=== PATIENT | female | born 1950 | race Caucasian/White ===

== ENCOUNTER → 2016-12-13 | Outpatient (CLI) | payer BC ==
[~2016-12-13] MED LIST: ATENOLOL25 MG PO; BYSTOLIC5 MG PO; COZAAR 25MG25 MG/TAB PO; DECADRON PO; DECADRON4 MG PO; HCTZ PO; HYDROXYZINE HCL25 MG PO; HYDROXYZINE PAM25 MG PO; LISINOPRIL; MIRTAZAPINE7.5 MG PO; MVI; NORCO 325 MG-51 TAB PO; PRILOSEC 20MG20 MG PO; REMERON SOLTAB15 MG PO; XANAX0.25 MG PO
== END ==
LOC: BHSO 09:36
DX: F41.1 Generalized anxiety disorder (principal)

== ENCOUNTER → 2017-01-07 | Outpatient (CLI) | payer BC | LOC: BHSO 09:42 | DX: F41.1 Generalized anxiety disorder (principal) ==

== ENCOUNTER → 2017-02-10 | Outpatient (CLI) | payer BC, MEDICARE, OTHER | LOC: BHSO 14:32 | DX: F41.1 Generalized anxiety disorder (principal) ==

== ENCOUNTER → 2017-05-12 | Outpatient (CLI) | payer MEDICARE, OTHER | LOC: BHSO 14:50 | DX: F41.1 Generalized anxiety disorder (principal) ==

== ENCOUNTER → 2017-11-10 | Outpatient (CLI) | payer MEDICARE, OTHER | LOC: BHSO 14:35 | DX: F41.1 Generalized anxiety disorder (principal) | CPT/HCPCS: G0463 ==

== ENCOUNTER → 2018-05-04 | Outpatient (CLI) | payer MEDICARE, OTHER | LOC: BHSO 14:18 | DX: F41.1 Generalized anxiety disorder (principal) | CPT/HCPCS: G0463 ==

== ENCOUNTER → 2018-07-31 | Outpatient (CLI) | payer MEDICARE, OTHER | LOC: MC.RAD 09:58 | DX: Z12.31 Encounter for screening mammogram for malignant neoplasm of breast (principal); Z78.0 Asymptomatic menopausal state ==

== ENCOUNTER → 2018-11-07 | Outpatient (CLI) | payer MEDICARE, OTHER | LOC: BHSO 13:56 | DX: F41.1 Generalized anxiety disorder (principal) | CPT/HCPCS: G0463 ==

== ENCOUNTER → 2019-01-30 | Outpatient (CLI) | payer MEDICARE, OTHER | LOC: BHSO 14:32 | DX: F41.1 Generalized anxiety disorder (principal) | CPT/HCPCS: G0463 ==

== ENCOUNTER → 2019-07-31 | Outpatient (CLI) | payer MEDICARE, OTHER | LOC: BHSO 13:54 | DX: F41.1 Generalized anxiety disorder (principal) | CPT/HCPCS: G0463 ==

== ENCOUNTER → 2019-08-21 | Outpatient (CLI) | payer MEDICARE, OTHER | LOC: MC.RAD 12:50 | DX: Z12.31 Encounter for screening mammogram for malignant neoplasm of breast (principal); N63.10 Unspecified lump in the right breast, unspecified quadrant; N63.20 Unspecified lump in the left breast, unspecified quadrant ==

== ENCOUNTER → 2020-03-06 | Outpatient (CLI) | payer MEDICARE, OTHER | LOC: MC.RAD 09:09 | DX: N60.11 Diffuse cystic mastopathy of right breast (principal) | CPT/HCPCS: G0279 ==

== ENCOUNTER → 2020-08-22 | Outpatient (CLI) | payer MEDICARE, OTHER | LOC: MC.RAD 12:56 | DX: Z12.31 Encounter for screening mammogram for malignant neoplasm of breast (principal) ==

== ENCOUNTER 2020-11-19 14:42 | Outpatient (CLI) | payer MEDICARE, OTHER ==
[~2020-11-19] VITALS: Ht 154.9 cm; Wt 62.9 kg
[2020-11-19 15:15] VITALS: BP 119/78; PULSE 64; TEMP 98
[2020-11-19] MEDS ORDERED: LIPITOR 10MG10 MG PO (15:27)
[2020-11-19] MEDS ORDERED: CLARITIN 1010 MG/TAB PO (15:27)
[2020-11-19] MEDS ORDERED: TOPROL XL 50MG50 MG PO (15:27)
[2020-11-19] MEDS ORDERED: ZOLOFT 100MG100 MG PO (15:27)
[2020-11-19] MEDS ORDERED: MASON NATURAL2000 IU PO (15:28)
[2020-11-19] MEDS ORDERED: CALCIUM 600-D 61 TAB PO (15:29)
[2020-11-19] MEDS ORDERED: TURMERIC500 MG PO (15:29)
[2020-11-19] MEDS ORDERED: MULTIVITAMIN FO1 CAP PO (15:29)
== END 2020-11-19 16:29 | disposition home or self-care (01) ==
LOC: EUO 14:42
DX: M81.0 Age-related osteoporosis without current pathological fracture (principal)
CPT/HCPCS: J3489

== ENCOUNTER → 2021-09-30 | Outpatient (CLI) | payer MEDICARE, OTHER ==
[~2021-09-30] MED LIST changes: +CALCIUM 600-D 61 TAB PO; +CLARITIN 1010 MG/TAB PO; +LIPITOR 10MG10 MG PO; +MASON NATURAL2000 IU PO; +MULTIVITAMIN FO1 CAP PO; +TOPROL XL 50MG50 MG PO; +TURMERIC500 MG PO; +ZOLOFT 100MG100 MG PO
== END ==
LOC: MC.RAD 12:59
DX: Z12.31 Encounter for screening mammogram for malignant neoplasm of breast (principal); N63.10 Unspecified lump in the right breast, unspecified quadrant; N63.20 Unspecified lump in the left breast, unspecified quadrant

== ENCOUNTER 2022-01-20 14:49 | Outpatient (CLI) | payer MEDICARE, OTHER ==
[~2022-01-20] VITALS: Ht 154.9 cm; Wt 63.5 kg
[2022-01-20 15:35] VITALS: BP 118/63; PULSE 72; TEMP 97.3
== END 2022-01-20 16:14 | disposition home or self-care (01) ==
LOC: EUO 14:49
DX: M81.0 Age-related osteoporosis without current pathological fracture (principal)
CPT/HCPCS: J3489

== ENCOUNTER → 2022-11-02 | Outpatient (CLI) | payer MEDICARE, OTHER | LOC: MC.RAD 07:40 | DX: Z12.31 Encounter for screening mammogram for malignant neoplasm of breast (principal) ==

== ENCOUNTER 2023-01-25 12:34 | Outpatient (CLI) | payer MEDICARE, OTHER ==
[~2023-01-25] VITALS: Ht 154.9 cm; Wt 60.8 kg
[~2023-01-25 12:34] MED LIST changes: -MASON NATURAL2000 IU PO; +VITAMIN D31000 I1 PO; +XANAX .25M0.25 MG/TA PO
[2023-01-25 13:06] VITALS: BP 116/73; PULSE 64; TEMP 98.4
[2023-01-25] MEDS ORDERED: OCUVITE1 TA1 PO (13:12)
[2023-01-25] MEDS ORDERED: OSCAL 500 TAB500 MG PO (13:14)
[2023-01-25] MEDS ORDERED: RECLAST5 MG/100 M IV (13:15)
--- NOTE | 2023-01-25 13:53 | NUR ---
Pt tolerated infusion without issue. IV DC'd, site wrapped with coban. She exited dept with steady gait.
== END 2023-01-25 13:57 | disposition home or self-care (01) ==
LOC: EUO 12:34
DX: M81.0 Age-related osteoporosis without current pathological fracture (principal)
CPT/HCPCS: J3489

== ENCOUNTER 2024-06-11 06:34 | Emergency (ER) | payer MEDICARE ==
[~2024-06-11] VITALS: Ht 162.6 cm; Wt 61.4 kg
[~2024-06-11 06:34] MED LIST changes: +OCUVITE1 TA1 PO; +OSCAL 500 TAB500 MG PO; +RECLAST5 MG/100 M IV
[2024-06-11 06:52] VITALS: TEMP 97.7
[2024-06-11 07:28] LABS: URINE APPEARANCE CLEAR (CLEAR/HAZY); URINE BLOOD 2+ (NEGATIVE); URINE COLOR YELLOW (YELLOW); URINE GLUCOSE NEGATIVE (NEGATIVE); URINE KETONE NEGATIVE (NEGATIVE); URINE NITRATE NEGATIVE (NEGATIVE); URINE PROTEIN(semi-quant) TRACE (NEGATIVE); URINE UROBILINOGEN 0.2 E.U/dL (0.2-1.0)
[2024-06-11] MEDS ORDERED: Ondansetron 4 MG/2 ML VIAL IV ONE (07:30)
[2024-06-11] MEDS ORDERED: Morphine 4 MG/ML VIAL IV ONE (07:30)
[2024-06-11] MEDS ORDERED: LR 1,000 ML IV ONE (07:30)
[2024-06-11 08:11] LABS: BASO # 0.1 K/mm3 (0.0-0.2); BASO % 0.4 % (0.0-2.0); EOS # 0.2 K/mm3 (0.0-0.7); EOS % 1.3 % (0.0-4.0); GRAN % 79.8 % (42.2-75.2); HEMOGLOBIN 14.8 g/dl (12.5-16.0); LYMPH # 1.9 K/mm3 (1.2-3.4); LYMPH % 12.6 % (20.0-51.0); MEAN CELL VOLUME 97 fl (80.0-100.0); MEAN CORPUSCULAR HEMOGLOBIN 33 pg (27-31); MEAN CORPUSCULAR HGB CONC 34 g/dl (33.0-37.0); MONO # 0.8 K/mm3 (0.1-0.6); MONO % 5.5 % (1.7-9.3); PLATELET COUNT 192 K/mm3 (130-400); RED BLOOD COUNT 4.53 M/mm3 (4.10-5.30)
[2024-06-11 09:00] LABS: ALBUMIN 3.7 g/dL (3.4-4.8); BILIRUBIN,TOTAL 0.5 mg/dL (0.2-1.2); C-REACTIVE PROTEIN 0.95 mg/dL (0.00-0.50); CALCIUM 9.6 mg/dL (8.4-10.2); CREATININE, serum 0.84 mg/dL (0.57-1.11); POTASSIUM 4.6 mEq/L (3.5-4.5); TOTAL PROTEIN 7.1 g/dl (6.2-8.1)
[2024-06-11] MEDS ORDERED: Iohexol 300 - 100 ML VIAL IV ONE (09:13)
[2024-06-11] MEDS ORDERED: NS 100 ML IV SCH (09:14)
[2024-06-11 09:49] LABS: COLLECTION METHOD CLEAN CATCH
[2024-06-11] MEDS ORDERED: CEFTIN 250250 MG/TAB PO (09:57)
[2024-06-11] MEDS ORDERED: NORCO 325 MG-51 TAB PO (09:57)
[2024-06-11] MEDS ORDERED: cefTRIAXone 1 G in Water For Injection,Sterile 10 ML IV ONE (10:00)
[2024-06-11 10:34] VITALS: BP 141/63; PULSE 78
== END 2024-06-11 10:44 | disposition home or self-care (01) ==
LOC: COL.ER 06:34
PROVIDERS: Family Medicine
DX: N20.1 Calculus of ureter (principal)
CPT/HCPCS: J0696; J2270; J2405; J7120; Q9967

== ENCOUNTER 2024-06-20 12:53 | Day surgery (SDC) | payer MEDICARE ==
[~2024-06-20] VITALS: Ht 162.6 cm; Wt 60.8 kg
[~2024-06-20 12:53] MED LIST changes: +CEFTIN 250250 MG/TAB PO; -COZAAR 25MG25 MG/TAB PO; +COZAAR 50MG50 MG/TAB PO; +LR 1,000 ML IV SCH; -XANAX .25M0.25 MG/TA PO; +XANAX 0.5MG0.5 MG PO
[2024-06-20] MEDS ORDERED: PRISTIQ 50 MG T50 MG PO (13:43)
[2024-06-20] MEDS ORDERED: PROTONIX 40MG T40 MG PO (13:44)
[2024-06-20 14:05] VITALS: BP 155/77; PULSE 66; TEMP 97.5
[2024-06-20] MEDS ORDERED: Midazolam 2 MG/2 ML VIAL ONE ×2 (14:18→15:53)
[2024-06-20] MEDS ORDERED: fentaNYL 50 MCG/ML 2 ML VIAL ONE (15:53)
[2024-06-20] MEDS ORDERED: Ondansetron 4 MG/2 ML VIAL ONE (15:55)
[2024-06-20] MEDS ORDERED: dexAMETHasone 10 MG/ML VIAL ONE (15:55)
[2024-06-20] MEDS ORDERED: Lidocaine PF 2% (20 MG/ML) 5 ML VIAL ONE (15:55)
[2024-06-20] MEDS ORDERED: NS 10 ML IV ONE (15:55)
--- NOTE | 2024-06-20 16:06 | NUR ---
1530: PT AMBULATED TO BATHROOM WITH STANDY-BY ASSIST. PT REQUSTING VERSED. MICHAEL CARSON NOTIFIED. NO NEW ORDERS RECEIVED. PT ENCOURAGED TO DEEP BREATH. RESTING IN COT. SPO2 REAMINS AT 98% OF 4L OF O2 VIA NASAL CANNUAL.
--- NOTE | 2024-06-20 16:59 | NUR ---
1650: PT CREOSOTING ENGINEER LIGHT AT THIS TIME. STATING SHE NEEDED SOMETHING FOR ANXIETY. YAMILETH RODRIGUEZ NOTIFIED. MICHAEL IN BAY 6 AND GAVE 1MG IVP VERSED. PT SPO2 98% ON 4L O2 VIA NASAL CANNULA. RESTING IN COT. CALL LIGHT IN REACH. AT BEDSIDE. PT CARE HANDED TO CHIO LANDAVERDE.
[2024-06-20] MEDS ORDERED: Ketorolac 30 MG/ML VIAL ONE (17:20)
[2024-06-20] MEDS ORDERED: Iohexol 350 - 100 ML VIAL URETER -L ONE (17:36)
[2024-06-20] MEDS ORDERED: Lidocaine 2% (20 MG/ML) 20 ML UROJET UR ONE (17:36)
[2024-06-20] MEDS ORDERED: fentaNYL 50 MCG/ML 1 ML SYRINGE/VIAL [PACU/SDC ONLY] IV PRN (17:45)
[2024-06-20] MEDS ORDERED: Ondansetron 4 MG/2 ML VIAL IV PRN ×2 (17:45→18:00)
[2024-06-20] MEDS ORDERED: hydrALAZINE 20 MG/ML 1 ML VIAL IV PRN (17:45)
[2024-06-20] MEDS ORDERED: HYDROmorphone 1 MG/1 ML SYRINGE [PACU/SDC ONLY] IV PRN (17:45)
[2024-06-20] MEDS ORDERED: Acetaminophen 325 MG TAB PO PRN (18:00)
[2024-06-20] MEDS ORDERED: Hyoscyamine 0.125 MG Sublingual TAB SL PRN (18:00)
[2024-06-20] MEDS ORDERED: Naloxone 0.4 MG/ML VIAL IV PRN (18:00)
[2024-06-20 19:05] VITALS: BP 126/64; PULSE 64; TEMP 97.9
[2024-06-20 19:20] VITALS: BP 110/63; PULSE 65
[2024-06-20 19:35] VITALS: BP 140/57; PULSE 74
--- NOTE | 2024-06-20 22:06 | NUR ---
PT ARRIVED FROM PACU AT 1905. VITALS STABLE. PT TOLERATED ORAL INTAKE. PT VOIDED, URINE WAS A LITTLE BLOODY. PT WAS ABLE TO WALK AROUND IN ROON. PT HAD DISCHARGE ORDERS. WENT OVER DISCHARGE PAPERWORK WITH PT. TOOK OUT PT IV. THIS NURSE ESCORTED PT OUT IN WHEELCHAIR TO HUSBANDS CAR.
== END 2024-06-20 21:00 | disposition home or self-care (01) ==
LOC: SDCO 12:53 → SURG 19:05 → SDCO 21:00 → SURG 21:00
DX: N20.2 Calculus of kidney with calculus of ureter (principal)
CPT/HCPCS: OP; C1769; C2617; J0690; J1100; J1885; J2250; J2405; J2704; J3010; J7120; Q9967

== ENCOUNTER 2024-06-22 10:27 | Inpatient (IN) | payer MEDICARE ==
[~2024-06-22] VITALS: Ht 160 cm; Wt 63.0 kg
[~2024-06-22 10:27] MED LIST changes: -LR 1,000 ML IV SCH; +PRISTIQ 50 MG T50 MG PO; +PROTONIX 40MG T40 MG PO
[2024-06-22] MEDS ORDERED: NS 1,000 ML IV ONE (10:45)
[2024-06-22] MEDS ORDERED: Ondansetron 4 MG/2 ML VIAL IV ONE (10:45)
[2024-06-22] MEDS ORDERED: Morphine 4 MG/ML VIAL IV PRN (10:45)
[2024-06-22 10:57] LABS: BASO % 0.2 % (0.0-2.0); GRAN # 12.2 K/mm3 (1.4-6.5); GRAN % 76.9 % (42.2-75.2); HEMATOCRIT 38.6 % (37.0-47.0); HEMOGLOBIN 13.6 g/dl (12.5-16.0); LYMPH # 2.2 K/mm3 (1.2-3.4); LYMPH % 14.2 % (20.0-51.0); MEAN CELL VOLUME 92 fl (80.0-100.0); MEAN CORPUSCULAR HEMOGLOBIN 32 pg (27-31); MEAN CORPUSCULAR HGB CONC 35 g/dl (33.0-37.0); MONO # 1.3 K/mm3 (0.1-0.6); MONO % 8.2 % (1.7-9.3); PLATELET COUNT 189 K/mm3 (130-400); RED BLOOD COUNT 4.21 M/mm3 (4.10-5.30); REDCELL DISTRIBUTION WIDTH-CV 12.2 % (11.5-14.5)
[2024-06-22 11:10] LABS: ALBUMIN 3.3 g/dL (3.4-4.8); BILIRUBIN,TOTAL 0.5 mg/dL (0.2-1.2); CREATININE, serum 0.85 mg/dL (0.57-1.11); POTASSIUM 3.5 mEq/L (3.5-4.5); TOTAL PROTEIN 6.4 g/dl (6.2-8.1)
[2024-06-22] MEDS ORDERED: NS 100 ML IV SCH (11:29)
[2024-06-22] MEDS ORDERED: Iohexol 300 - 100 ML VIAL IV ONE (11:30)
[2024-06-22 11:48] LABS: COLLECTION METHOD CLEAN CATCH
[2024-06-22 11:57] LABS: URINE APPEARANCE CLEAR (CLEAR/HAZY); URINE BLOOD 3+ (NEGATIVE); URINE COLOR ORANGE (YELLOW); URINE GLUCOSE NEGATIVE (NEGATIVE); URINE KETONE NEGATIVE (NEGATIVE); URINE NITRATE NEGATIVE (NEGATIVE); URINE PROTEIN(semi-quant) 2+ (NEGATIVE); URINE UROBILINOGEN 0.2 E.U/dL (0.2-1.0)
[2024-06-22 13:00] VITALS: BP_SYST 112
[2024-06-22] MEDS ORDERED: Polyethylene Glycol 3350 17 GM PDS PO PRN (13:15)
[2024-06-22] MEDS ORDERED: Docusate Sodium 100 MG CAP PO PRN (13:15)
[2024-06-22] MEDS ORDERED: Acetaminophen 325 MG TAB PO PRN (13:15)
[2024-06-22] MEDS ORDERED: NS 1,000 ML IV SCH (13:15)
[2024-06-22] MEDS ORDERED: Ondansetron 4 MG/2 ML VIAL IV PRN (13:15)
[2024-06-22] MEDS ORDERED: cefTRIAXone 1 G in Water For Injection,Sterile 10 ML IV SCH (14:00)
[2024-06-22 14:14] VITALS: BP 112/61; PULSE 111; TEMP 100
[2024-06-22] MEDS ORDERED: ALPRAZolam 0.25 MG TAB PO PRN (14:45)
[2024-06-22] MEDS ORDERED: Loratadine 10 MG TAB PO PRN (14:45)
[2024-06-22 17:23] VITALS: BP_SYST 112
[2024-06-22 18:55] LABS: CLOSTRIDIUM DIFF A/B NEG
[2024-06-22 19:44] VITALS: BP 90/53; PULSE 121; TEMP 98.2
[2024-06-22 20:00] VITALS: BP_SYST 90
--- NOTE | 2024-06-22 20:00 | NUR ---
PT AWAKE AND RESTING IN BED. MEWS SCORE OF 4. DEE CHAIREZ NOTIFIED. ORDERS OF LR AT 500ML/HR. TELEPHONE ORDER READ BACK. LR INITIATED. PT STATES THERE IS SOME DISCOMFORT D/T FREQUENT AND LOOSE STOOLS. DENIES PAIN MEDS AT THIS TIME. AMBULATED TO TOILET X1 STANDBY ASSIST. PT VOIDED AND HAD BM, BLOODY CONTENTS IN TOILET OBSERVED. SCHEDULED MEDS GIVEN PER eMAR. BED ALARM ON AND CALL LIGHT WITHIN REACH.
[2024-06-22] MEDS ORDERED: LR 500 ML IV ONE (20:15)
[2024-06-22] MEDS ORDERED: Atorvastatin 10 MG TAB PO SCH (21:00)
[2024-06-22 23:40] VITALS: BP 106/69; PULSE 117; TEMP 98.6
[2024-06-23] VITALS (11 sets, daily range): BP systolic 77–150; BP diastolic 65–79; PULSE 96–111; TEMP 97.4–98.6
--- NOTE | 2024-06-23 00:24 | NUR ---
MEWS SCORE OF 3 AT MIDNIGHT VITALS. NOTIFIED KAPIL, CHARGE NURSE. PT STABLE AND DENIES ANY PAIN OR DISCOMFORT. CONTINUING TO HAVE LOOSE, FREQUENT STOOLS WITH GROSS BLOOD NOTED. NO FURTHER CONCERNS.
--- NOTE | 2024-06-23 04:27 | NUR ---
MEWS SCORE OF 3. NOTIFIED KAPIL, CHARGE NURSE. PT STABLE WITH CONTINUED FREQUENT TRIPS TO BATHROOM. STOOL ARE LIQUIDY AND BLOODY. BSC USED D/T FREQUENCY AND TO PREVENT IV PUMP FROM BEING UNPLUGGED TOO OFTEN. NO FURTHER CONCERNS.
[2024-06-23 06:04] LABS: BASO % 0.2 % (0.0-2.0); EOS % 0.3 % (0.0-4.0); GRAN # 5.8 K/mm3 (1.4-6.5); GRAN % 65.9 % (42.2-75.2); LYMPH # 1.9 K/mm3 (1.2-3.4); LYMPH % 21.9 % (20.0-51.0); MEAN CORPUSCULAR HGB CONC 34 g/dl (33.0-37.0); MEAN PLATELET VOLUME 10.7 fl (7.4-10.4); MONO % 11.6 % (1.7-9.3); PLATELET COUNT 162 K/mm3 (130-400); REDCELL DISTRIBUTION WIDTH-CV 12.3 % (11.5-14.5)
[2024-06-23 06:17] LABS: HEMATOCRIT 33.2 % (37.0-47.0); HEMOGLOBIN 11.3 g/dl (12.5-16.0); MEAN CELL VOLUME 95 fl (80.0-100.0); MEAN CORPUSCULAR HEMOGLOBIN 32 pg (27-31)
[2024-06-23 06:26] LABS: ALBUMIN 2.5 g/dL (3.4-4.8); BILIRUBIN,TOTAL 0.3 mg/dL (0.2-1.2); CALCIUM 8.4 mg/dL (8.4-10.2); CREATININE, serum 0.83 mg/dL (0.57-1.11); POTASSIUM 3.5 mEq/L (3.5-4.5); TOTAL PROTEIN 5.2 g/dl (6.2-8.1)
--- NOTE | 2024-06-23 12:20 | NUR ---
Data: Patient is on contact precautions and has a notice about visitors on her door. Patient's arrived as Cnc Cutting Operator was preparing to offer a spiritual care visit. declined on Patient's behalf. Assessment: None at this time. Plan of Care: Chaplains are available as needed/requested while Patient is admitted to this hospital.
[2024-06-23] MEDS ORDERED: Phenylephrine/Mineral Oil/Petrolatum 57 GM TUBE RC PRN (14:45)
--- NOTE | 2024-06-23 15:13 | NUR ---
sub assembly team worker spoke with patient regarding discharge planning. Patient states that she lives in [place] with her Shmuel (p#[phone]). Patient states that Shmuel is also her DPOA. Patient confirmed that her PCP is Dr. Roberts and that her pharmacy is [facility]. Patient states that she does have a CPAP at home but does not use it, and also stated that she is independent in ADLs and in driving. Patient denies ever using home health services in the past. Patient denies any concerns regarding discharge. Per PT note, patient may require home health services. sub assembly team worker to return to discuss HH and present [email or web address] list to patient. D/C: Home with family support or HH.
--- NOTE | 2024-06-23 18:00 | NUR ---
PATIENT AWAKE AND ALET, SITTING UP IN BED. PATEINT DENIES ANY NEEDS OR COMPLAINTS AT THIS TIME. CALL LIGHT WTIHIN REACH. FALL PRECAUTIOSN IN PLACE. PATIENTS AT BEDSIDE.
--- NOTE | 2024-06-23 20:00 | NUR ---
PT AWAKE AND RESTING IN BED WITH C/O 7/10 PAIN R/T PERINEAL REGION BEING SORE FROM FREQUENT BATHROOM TRIPS. PRN TYLENOL OFFERED AND GIVEN. NS INFUSING AT 75ML/HR. NO OTHER CONCERNS AT THIS TIME. BED ALARM ON AND CALL LIGHT WITHIN REACH.
[2024-06-24] VITALS (12 sets, daily range): BP systolic 111–137; BP diastolic 44–62; PULSE 75–95; TEMP 97.4–98
[2024-06-24 07:28] LABS: BASO % 0.4 % (0.0-2.0); EOS # 0.2 K/mm3 (0.0-0.7); EOS % 2.4 % (0.0-4.0); GRAN # 3.6 K/mm3 (1.4-6.5); GRAN % 52.9 % (42.2-75.2); LYMPH # 2.2 K/mm3 (1.2-3.4); LYMPH % 33.1 % (20.0-51.0); MEAN CELL VOLUME 95 fl (80.0-100.0); MEAN CORPUSCULAR HEMOGLOBIN 32 pg (27-31); MEAN CORPUSCULAR HGB CONC 34 g/dl (33.0-37.0); MEAN PLATELET VOLUME 10.9 fl (7.4-10.4); MONO # 0.7 K/mm3 (0.1-0.6); MONO % 10.8 % (1.7-9.3); PLATELET COUNT 152 K/mm3 (130-400); RED BLOOD COUNT 3.79 M/mm3 (4.10-5.30); REDCELL DISTRIBUTION WIDTH-CV 12.3 % (11.5-14.5)
[2024-06-24 07:31] LABS: HEMATOCRIT 35.8 % (37.0-47.0)
[2024-06-24 07:38] LABS: ALBUMIN 2.6 g/dL (3.4-4.8); BILIRUBIN,TOTAL 0.3 mg/dL (0.2-1.2); CALCIUM 8.2 mg/dL (8.4-10.2); CREATININE, serum 0.67 mg/dL (0.57-1.11); POTASSIUM 3.2 mEq/L (3.5-4.5); TOTAL PROTEIN 5.5 g/dl (6.2-8.1)
--- NOTE | 2024-06-24 08:00 | NUR ---
PATIENT AWAKE AND ALERT, SITTING UP IN BED. CALL LIGHT WITHIN REACH. FALL PRECAUTIONS IN PLACE. PATIENT DENIES ANY NEEDS OR COMPLAINTS AT THIS TIME. TUCKS PROVIDED YESTERDAY BY THIS RN TO HELP WITH PAIN FROM HEMRRHOIDS.
[2024-06-24] MEDS ORDERED: Potassium Bicarbonate/Citrate 20 MEQ Effervescent TAB PO SCH (09:15)
[2024-06-24] MEDS ORDERED: *Potassium Replacement Protocol MC SCH (09:15)
--- NOTE | 2024-06-24 11:34 | NUR ---
RIGOBERTO met with patient and provided medicare.gov list on HH options for patient to review. SW will revisit with patient about her selection, she wanted to inquire with her spouse on services.
[2024-06-24] MEDS ORDERED: Loratadine 10 MG TAB PO SCH (13:45)
--- NOTE | 2024-06-24 19:30 | NUR ---
Assessment complete. A&Ox3. Denies nausea/shortness of breath. Rating pain 5/10 on pain scale-described as intermittent burning to hemorrhoids. Tylenol given per dr order. Encouraged to use Tucks pads. INT to left FA clushes without difficulty-no s/s of infiltration noted. Plan of care discussed for this shift to include meds/pain control/calling for questions/concerns. Verbalizes understanding. Call light in reach/bed alarm on. Will monitor.
[2024-06-25] VITALS (13 sets, daily range): BP systolic 122–146; BP diastolic 58–76; PULSE 77–98; TEMP 97.7–98.4
--- NOTE | 2024-06-25 02:20 | NUR ---
Patient resting eyes closed. No s/s of pain or discomfort noted. Call light in reach/bed alarm on. Will monitor.
--- NOTE | 2024-06-25 05:48 | NUR ---
Patient rested off an on this shift. Denied nausea/shortness of breath. C/O backache and received tylenol for this. Two small loose stools peralta in color. Voiding without difficulty. Left FA INT flushes without difficulty. Currently on RA. VS stable. Denies current needs. Call light in reach. Will monitor.
[2024-06-25 06:53] LABS: BASO % 0.4 % (0.0-2.0); EOS # 0.3 K/mm3 (0.0-0.7); EOS % 3.9 % (0.0-4.0); GRAN # 5.2 K/mm3 (1.4-6.5); GRAN % 61.5 % (42.2-75.2); HEMOGLOBIN 12.1 g/dl (12.5-16.0); LYMPH # 2.1 K/mm3 (1.2-3.4); LYMPH % 24.9 % (20.0-51.0); MEAN CELL VOLUME 93 fl (80.0-100.0); MEAN CORPUSCULAR HEMOGLOBIN 33 pg (27-31); MEAN CORPUSCULAR HGB CONC 35 g/dl (33.0-37.0); MEAN PLATELET VOLUME 10.5 fl (7.4-10.4); MONO # 0.7 K/mm3 (0.1-0.6); MONO % 8.5 % (1.7-9.3); PLATELET COUNT 181 K/mm3 (130-400); REDCELL DISTRIBUTION WIDTH-CV 12.4 % (11.5-14.5)
[2024-06-25 06:59] LABS: HEMATOCRIT 34.4 % (37.0-47.0)
[2024-06-25 07:10] LABS: ALBUMIN 2.6 g/dL (3.4-4.8); BILIRUBIN,TOTAL 0.3 mg/dL (0.2-1.2); CALCIUM 8.5 mg/dL (8.4-10.2); CREATININE, serum 0.79 mg/dL (0.57-1.11); MAGNESIUM 1.7 mg/dL (1.6-2.6); POTASSIUM 3.4 mEq/L (3.5-4.5); TOTAL PROTEIN 5.5 g/dl (6.2-8.1)
[2024-06-25] MEDS ORDERED: Potassium Bicarbonate/Citrate 20 MEQ Effervescent TAB PO SCH (07:30)
[2024-06-25] MEDS ORDERED: *Potassium Replacement Protocol MC SCH (07:30)
--- NOTE | 2024-06-25 13:51 | NUR ---
Coin Machine Assembler followed up with patient and her about Home Health services. Patient stated their first preference is [facility]. SW sent a referral to Kike at [facility] via secure email.
--- NOTE | 2024-06-25 14:35 | NUR ---
Kike b[facility]eno [facility] accepted referral.
[2024-06-25] MEDS ORDERED: Magnesium Sulfate 4% 50 ML IV ONE (16:00)
[2024-06-25] MEDS ORDERED: Cephalexin 500 MG CAP PO SCH (21:00)
--- NOTE | 2024-06-25 21:00 | NUR ---
UPON SHIFT ASSESSMENT, KALIN WAS AWAKE IN BED READING A BOOK. SHE IS A&O X4 AND VS ARE WNL. SHE DENIES DYSURIA, DIARRHEA OR HEMATURIA, HOWEVER, SHE C/O OF 4/10 LT FLANK PAIN. PRN TYLENOL ADMINISTERED. STATES NO NEEDS AT THIS TIME. CALL LIGHT WITHIN REACH
[2024-06-26] VITALS (10 sets, daily range): BP systolic 110–153; BP diastolic 52–77; PULSE 74–109; TEMP 97.4–100.3
--- NOTE | 2024-06-26 03:53 | NUR ---
PATIENT C/O OF DRY THROAT AND NASAL PASSAGES. CALL PLACED TO HOSPITALISTJOSEPH. AGEE FOR OCEAN'S SPRAY NS GIVEN.
[2024-06-26] MEDS ORDERED: Sodium Chloride 0.65% Nasal Irrig 45 ML BOTTLE NS PRN (04:00)
--- NOTE | 2024-06-26 06:33 | NUR ---
PATIENT STATES THAT MOST RECENT VOID WAS PINK-HEMATURIA. BOWEL MOVEMENT SOFT BUT FORMED.
[2024-06-26 06:42] LABS: BASO % 0.5 % (0.0-2.0); EOS # 0.3 K/mm3 (0.0-0.7); EOS % 3.4 % (0.0-4.0); GRAN # 4.5 K/mm3 (1.4-6.5); GRAN % 55.4 % (42.2-75.2); HEMOGLOBIN 12.7 g/dl (12.5-16.0); LYMPH # 2.7 K/mm3 (1.2-3.4); LYMPH % 32.7 % (20.0-51.0); MEAN CELL VOLUME 93 fl (80.0-100.0); MEAN CORPUSCULAR HEMOGLOBIN 33 pg (27-31); MEAN CORPUSCULAR HGB CONC 35 g/dl (33.0-37.0); MEAN PLATELET VOLUME 10.5 fl (7.4-10.4); MONO # 0.6 K/mm3 (0.1-0.6); PLATELET COUNT 221 K/mm3 (130-400); RED BLOOD COUNT 3.91 M/mm3 (4.10-5.30); REDCELL DISTRIBUTION WIDTH-CV 12.3 % (11.5-14.5)
[2024-06-26 06:44] LABS: HEMATOCRIT 36.3 % (37.0-47.0)
[2024-06-26 06:52] LABS: CREATININE, serum 0.72 mg/dL (0.57-1.11); POTASSIUM 4.7 mEq/L (3.5-4.5)
[2024-06-26 07:06] LABS: CALCIUM 9.7 mg/dL (8.4-10.2)
[2024-06-26] MEDS ORDERED: Witch Hazel 50% Pads Bulk TUB TP PRN (11:30)
[2024-06-26] MEDS ORDERED: Loperamide 2 MG CAP PO PRN (11:30)
--- NOTE | 2024-06-26 13:20 | NUR ---
RIGOBERTO faxed updates to [facility]. Discharge Plan: home with HH
[2024-06-26] MEDS ORDERED: clonazePAM 0.25 MG TAB PO ONE (15:45)
--- NOTE | 2024-06-26 15:45 | NUR ---
INFORMED PATIENT COMPLAINING SHE IS HAVING A PANIC ATTACK AND THAT SHE 'CANT DO IT ANYMORE" AND IS SAYING SHE DOES NOT WANT TO GO HOME TOMORROW WIHT HER , HE CAN NOT TAKE CARE OF HER. hoWEVER,, THE PATIENT IS INDEPENDENT IN HER ROOM. VORB OF CLONAZEPAM 0.25 MG PO X1 NOW.
--- NOTE | 2024-06-26 16:20 | NUR ---
MD INFORMED PATIENT IS COMPLAINING OF PAIN TO THE LEFT FLANK AREA 05/29. PER PATIENT SHE WAS TAKING NORCO 5 PRN AT HOME, AND THAT MANAGED HER PAIN WELL. PER MD WE CAN GIVE NORCO 5/325 PO X1 NOW, AND IF PAIN CONTINUES TO INFORM HOPSITALIST TOMORROW MORNING. MD ALSO MADE AWARE OF PATIENT TAKING XANAX AT HOME PRN, THIS WILL BE RESUMED BY THE MD. MD IS ALSO OK WITH PATIENT HAVING A HEATING PAD.
--- NOTE | 2024-06-26 18:54 | NUR ---
PATIENT RESTING IN BED WITH TV ON WITH NO FAMILY PRESENT WITH NO ACUTE DISTRESS NOTED. PATIENT ON ROOM AIR. INT TO LEFT FOREARM INTACT WITH NO COMPLICATIONS NOTED. PATIENT USING K-PAD AT THIS TIME. BEDSIDE SHIFT REPORT COMPLETED WITH VOLODYMYR AT THIS TIME. PATIENT DENIES ANY NEEDS AT THIS TIME. BED IN LOW POSITON WITH WHEELS LOCKED WITH RAILS UP X3 AND CALL LIGHT WITHIN REACH.
--- NOTE | 2024-06-26 19:10 | NUR ---
BEDSIDE REPORT COMPLETED. PATIENT AWAKE AND ALERT RESTING IN BED WITH HEATING PAD TO THE LEFT LOWER BACK. PER PATIENT HER PAIN HAS DECREASED FROM A 9 OUT OF 10 TO A 2 OUT OF 10. SHE MORENITA ANY NEEDS OR COMPLAINTS AT THIS TIME. CALL LIGHT WTIHAZUCENA MACARIO.
--- NOTE | 2024-06-26 21:48 | NUR ---
PATIENT RESTING IN BED WITH TV ON WITH NO FAMILY PRESENT WITH NO ACUTE DISTRESS NOTED. PATIENT ON ROOM AIR. INT TO LEFT FOREARM INTACT WITH NO COMPLICATIONS NOTED. ASSESSMENT AND MEDICATION ADMINISTRATION COMPLETED AT THIS TIME. PATIENT C/O PAIN. PATIENT STATES PAIN LEVEL IS 5 ON SCALE OF 0 TO 10. PO TYLENOL GIVEN PER MD ORDE. PATIENT TOLERATED WELL. ALL NEEDS MET. BED IN LOW POSITION WITH WHEELS LOCKED WITH RAILS UP X3 AND CALL LIGHT WITHIN REACH.
[2024-06-27] VITALS (13 sets, daily range): BP systolic 112–142; BP diastolic 65–82; PULSE 91–106; TEMP 98.3–99.8
[2024-06-27 06:53] LABS: BASO # 0.1 K/mm3 (0.0-0.2); BASO % 0.4 % (0.0-2.0); EOS # 0.1 K/mm3 (0.0-0.7); EOS % 0.9 % (0.0-4.0); GRAN # 9.1 K/mm3 (1.4-6.5); GRAN % 68.6 % (42.2-75.2); HEMOGLOBIN 12.4 g/dl (12.5-16.0); LYMPH # 2.7 K/mm3 (1.2-3.4); LYMPH % 20.1 % (20.0-51.0); MEAN CELL VOLUME 92 fl (80.0-100.0); MEAN CORPUSCULAR HEMOGLOBIN 32 pg (27-31); MEAN CORPUSCULAR HGB CONC 35 g/dl (33.0-37.0); MEAN PLATELET VOLUME 10.5 fl (7.4-10.4); MONO # 1.2 K/mm3 (0.1-0.6); MONO % 9.2 % (1.7-9.3); PLATELET COUNT 213 K/mm3 (130-400); RED BLOOD COUNT 3.89 M/mm3 (4.10-5.30); REDCELL DISTRIBUTION WIDTH-CV 12.3 % (11.5-14.5)
[2024-06-27 06:58] LABS: HEMATOCRIT 35.8 % (37.0-47.0)
[2024-06-27 07:06] LABS: CREATININE, serum 0.71 mg/dL (0.57-1.11); POTASSIUM 3.4 mEq/L (3.5-4.5)
--- NOTE | 2024-06-27 14:01 | NUR ---
Screening Tech sent updates to Kike at [facility] via secure email.
--- NOTE | 2024-06-27 18:59 | NUR ---
PATIENT SITTING UP IN BED WITH AT BEDSIDE WITH TV OFF WITH NO ACUTE DISTRESS NOTED. PATIENT ON ROOM AIR. INT TO LEFT FOREARM INTACT WITH NO COMPLICATIONS NOTED. BEDSIDE SHIFT REPORT COMPLETED WITH LARON AT THIS TIME. PATIENT DENIES ANY NEEDS AT THIS TIME. BED IN LOW POSITION WITH WHEELS LOCKED WITH RAILS UP X2 AND CALL LIGHT WITHIN REACH.
--- NOTE | 2024-06-27 20:45 | NUR ---
PATIENT RESTING IN BED WITH TV OFF WITH NO FAMILY PRESENT WITH NO ACUTE DISTRESS NOTED. PATIENT ON ROOM AIR. INT TO LEFT FOREARM INTACT WITH NO COMPLICATIONS NOTED. ASSESSMENT AND MEDICATION ADMINISTRATION COMPLETED AT THIS TIME. PATIENT REQUESTED TYLENOL AND WAS GIVEN. PATIENT STATES PAIN LEVEL IS 1.5 ON SCALE OF 0 TO 10. PATIENT TOLERATED WELL. PATIENT REQUESTED TO USE BATHROOM. PATIENT AMBULATED TO BATHROOM AND VOIDED. PATIENT AMBULATED BACK TO BED AND HELPED TO REPOSITION FOR COMFORT. PATIENT REQUESTED ICE AND WATER IN HER PITCHER AND WAS FILLED. ALL NEEDS MET. BED IN LOW POSITION WITH WHEELS LOCKED WITH RAILS UP X3 AND CALL LIGHT WITHIN REACH.
[2024-06-28] VITALS (8 sets, daily range): BP systolic 119–130; BP diastolic 75–79; PULSE 83–92; TEMP 97.4–98.5
[2024-06-28 06:37] LABS: BASO % 0.5 % (0.0-2.0); EOS # 0.3 K/mm3 (0.0-0.7); GRAN # 4.4 K/mm3 (1.4-6.5); GRAN % 51.7 % (42.2-75.2); HEMOGLOBIN 12.6 g/dl (12.5-16.0); LYMPH # 2.7 K/mm3 (1.2-3.4); LYMPH % 32.2 % (20.0-51.0); MEAN CELL VOLUME 92 fl (80.0-100.0); MEAN CORPUSCULAR HEMOGLOBIN 32 pg (27-31); MEAN CORPUSCULAR HGB CONC 35 g/dl (33.0-37.0); MEAN PLATELET VOLUME 9.9 fl (7.4-10.4); MONO % 11.6 % (1.7-9.3); PLATELET COUNT 226 K/mm3 (130-400); RED BLOOD COUNT 3.92 M/mm3 (4.10-5.30); REDCELL DISTRIBUTION WIDTH-CV 12.2 % (11.5-14.5)
[2024-06-28 06:38] LABS: HEMATOCRIT 35.9 % (37.0-47.0)
[2024-06-28 06:53] LABS: CALCIUM 9.1 mg/dL (8.4-10.2); CREATININE, serum 0.68 mg/dL (0.57-1.11); POTASSIUM 3.5 mEq/L (3.5-4.5)
[2024-06-28] MEDS ORDERED: Potassium Bicarbonate/Citrate 20 MEQ Effervescent TAB PO SCH (07:45)
[2024-06-28] MEDS ORDERED: CEPHALEXIN500 M1 PO (11:27)
--- NOTE | 2024-06-28 13:40 | NUR ---
Graphic Technician attended clinical rounds with the team and patient will be discharged home today with Home Health. RIGOBERTO met with patient to present and review IM form. Patient verbalized understanding and provided signature. SW placed form in chart and provided copy to patient. Patient was provided resources from Dietitian on Meals on Wheels/Mom's meals. RIGOBERTO contacted Kike at [facility] and sent discharge orders via secure email. Discharge Plan: Home with [facility]
--- NOTE | 2024-06-28 14:05 | NUR ---
THIS RN PROVIDED PATIENT WITH DISCHARGE EDUCATION AND INSTRUCTIONS. ALL QUESTIONS ANSWERED. IV TO LFA DISCONTINUED. MINIMAL DRAINAGE NOTED.
--- NOTE | 2024-06-28 14:12 | NUR ---
PATIENT ESCORTED OFF UNIT AT APPROX 1350 VIA WHEELCHAIR BY PCT AND . ALL BELONGINGS WITH PATIENT.
== END 2024-06-28 13:50 | disposition home or self-care (01) | DRG 872 ==
LOC: COL.ER 10:27 → MEDICAL 13:06
PROVIDERS: Internal Medicine; Personal Emergency Response Attendant; Physician Assistant; ADMIT Hospitalist
DX: A41.9 Sepsis, unspecified organism (principal); N13.6 Pyonephrosis; R19.7 Diarrhea, unspecified; E87.6 Hypokalemia; R91.1 Solitary pulmonary nodule; I10 Essential (primary) hypertension; E78.5 Hyperlipidemia, unspecified; K21.9 Gastro-esophageal reflux disease without esophagitis; F32.A Depression, unspecified
CPT/HCPCS: J0696; J1650; J2270; J2405; J3475; J7030; J7120; Q9967

== ENCOUNTER 2024-07-07 13:26 | Observation (INO) | payer MEDICARE ==
[~2024-07-07] VITALS: Ht 162.6 cm; Wt 63.5 kg
[~2024-07-07 13:26] MED LIST changes: +CEPHALEXIN500 M1 PO
[2024-07-07 14:20] LABS: COLLECTION METHOD CLEAN CATCH
[2024-07-07 14:26] LABS: PH 5.5 (5.0-8.5); URINE APPEARANCE CLOUDY (CLEAR/HAZY); URINE BLOOD 1+ (NEGATIVE); URINE COLOR Dark Yellow (YELLOW); URINE GLUCOSE NEGATIVE (NEGATIVE); URINE KETONE NEGATIVE (NEGATIVE); URINE NITRATE NEGATIVE (NEGATIVE); URINE PROTEIN(semi-quant) TRACE (NEGATIVE); URINE UROBILINOGEN 0.2 E.U/dL (0.2-1.0)
[2024-07-07 14:48] LABS: URINE BACTERIA OCCASIONAL /hpf (NONE SEEN); URINE CALCIUM OXALATE CRYSTAL PRESENT (NOT PRESENT)
[2024-07-07] MEDS ORDERED: NS 1,000 ML IV ONE ×2 (15:00→16:45)
[2024-07-07] MEDS ORDERED: fentaNYL 50 MCG/ML 2 ML VIAL IV ONE ×2 (15:00→16:45)
[2024-07-07] MEDS ORDERED: Ondansetron 4 MG/2 ML VIAL IV ONE (15:00)
[2024-07-07 15:02] LABS: BASO # 0.1 K/mm3 (0.0-0.2); BASO % 0.7 % (0.0-2.0); EOS % 0.4 % (0.0-4.0); GRAN # 6.9 K/mm3 (1.4-6.5); GRAN % 63.9 % (42.2-75.2); HEMOGLOBIN 13.4 g/dl (12.5-16.0); LYMPH # 2.4 K/mm3 (1.2-3.4); LYMPH % 22.7 % (20.0-51.0); MEAN CELL VOLUME 95 fl (80.0-100.0); MEAN CORPUSCULAR HEMOGLOBIN 33 pg (27-31); MEAN CORPUSCULAR HGB CONC 34 g/dl (33.0-37.0); MEAN PLATELET VOLUME 10.1 fl (7.4-10.4); MONO # 1.3 K/mm3 (0.1-0.6); MONO % 11.9 % (1.7-9.3); PLATELET COUNT 332 K/mm3 (130-400); RED BLOOD COUNT 4.11 M/mm3 (4.10-5.30); REDCELL DISTRIBUTION WIDTH-CV 11.9 % (11.5-14.5)
[2024-07-07 15:18] LABS: ALBUMIN 3.1 g/dL (3.4-4.8); BILIRUBIN,TOTAL 0.4 mg/dL (0.2-1.2); CALCIUM 9.7 mg/dL (8.4-10.2); CREATININE, serum 0.74 mg/dL (0.57-1.11); POTASSIUM 3.7 mEq/L (3.5-4.5); TOTAL PROTEIN 6.7 g/dl (6.2-8.1)
[2024-07-07 15:23] LABS: TROPONIN-I 0.016 ng/mL (0.00-0.033)
[2024-07-07] MEDS ORDERED: cefTRIAXone 1 G in Water For Injection,Sterile 10 ML IV ONE (16:45)
[2024-07-07] MEDS ORDERED: LR 1,000 ML IV SCH (18:45)
[2024-07-07] MEDS ORDERED: Acetaminophen 325 MG TAB PO PRN (18:45)
[2024-07-07] MEDS ORDERED: NS 1,000 ML IV SCH (18:45)
[2024-07-07 20:00] VITALS: BP 126/69; PULSE 118; TEMP 99.6
--- NOTE | 2024-07-07 20:00 | NUR ---
PT ADMITTED TO ROOM 330 PER CART FROM ED, ALERT AND ORIENTED, AMBULATING TO RESTROOM INDEPENDENTLY, ORIENTED TO ROOM, FLOOR AND PLAN OF CARE, MED REC, ADMISSION ASSESSMENT AND INTAKE COMPLETED. IVF STARTED AT 80 CC/HR PER PIV IN RAC. DR SIMPSON TO ROOM TO ASSESS AND WRITE ORDERS.
[2024-07-07] MEDS ORDERED: Loperamide 2 MG CAP PO PRN ×2 (20:30)
[2024-07-07] MEDS ORDERED: Loperamide 2 MG CAP PO SCH (20:30)
[2024-07-07] MEDS ORDERED: Lidocaine 5% Ointment 35.44 GM TUBE TP PRN (20:45)
[2024-07-07] MEDS ORDERED: Phenylephrine/Mineral Oil/Petrolatum 57 GM TUBE RC PRN (20:45)
[2024-07-07] MEDS ORDERED: Atorvastatin 10 MG TAB PO SCH (21:00)
[2024-07-08] VITALS (15 sets, daily range): BP systolic 97–127; BP diastolic 42–71; PULSE 58–117; TEMP 97.5–99.9
[2024-07-08] MEDS ORDERED: Heparin 5,000 UNITS/ML 1 ML VIAL SQ SCH
--- NOTE | 2024-07-08 05:09 | NUR ---
PT HAVING FREQUENT EPISODES OF DIARRHEA, IMODIUM GIVEN TOTAL OF 8 MG THIS SHIFT, NPO FOR CYSTO THIS AM, TEMP 99.9 TYLENOL GIVEN PO WITH SIP OF WATER. IVF INFUSING PER PIV AT 80 CC/HR. OINTMENTS PROVIDED FOR PERIRECTAL PAIN FROM FREQ STOOLS.
[2024-07-08 05:40] LABS: MEAN CELL VOLUME 92 fl (80.0-100.0); MEAN CORPUSCULAR HGB CONC 35 g/dl (33.0-37.0); MEAN PLATELET VOLUME 9.6 fl (7.4-10.4); PLATELET COUNT 234 K/mm3 (130-400); RED BLOOD COUNT 3.52 M/mm3 (4.10-5.30)
[2024-07-08 05:43] LABS: HEMATOCRIT 32.4 % (37.0-47.0); HEMOGLOBIN 11.3 g/dl (12.5-16.0); MEAN CORPUSCULAR HEMOGLOBIN 32 pg (27-31)
[2024-07-08 05:55] LABS: ANION GAP 11 mmol/L (7-16); CALCIUM 8.1 mg/dL (8.4-10.2); CHLORIDE 105 mEq/L (98-107); CREATININE, serum 0.68 mg/dL (0.57-1.11); GLUCOSE 124 mg/dL (70-99); POTASSIUM 3.5 mEq/L (3.5-4.5); SODIUM 139 mEq/L (136-145)
[2024-07-08 06:09] LABS: BLOOD UREA NITROGEN < 5 mg/dL (10-20)
[2024-07-08 06:11] LABS: BAND 20 % (0-10); LYMPHOCYTE 23 % (20.0-51.0); NEUTROPHILS 45 % (42.0-75.2); PLATELET ESTIMATE NORMAL (NORMAL)
[2024-07-08] MEDS ORDERED: Lidocaine 2% (20 MG/ML) 20 ML UROJET UR ONE ×2 (07:16→08:20)
--- NOTE | 2024-07-08 07:39 | NUR ---
PT RESTING IN BED, ALERT AND ORIENTEDX4. ASSESSED PT. NO COMPLAINTS OF KIDNEY STONE PAIN BUT HAS SOME PAIN AROUND COCCYX FROM DIARRHEA. HUNG LR BAG. PT STATES SHE IS HAVING ANXIETY ABOUT THE SURGERY. [facility]
[2024-07-08] MEDS ORDERED: fentaNYL 50 MCG/ML 2 ML VIAL ONE (07:47)
[2024-07-08] MEDS ORDERED: Midazolam 2 MG/2 ML VIAL ONE (07:47)
[2024-07-08] MEDS ORDERED: dexAMETHasone 10 MG/ML VIAL ONE (07:48)
[2024-07-08] MEDS ORDERED: Ondansetron 4 MG/2 ML VIAL ONE (07:48)
[2024-07-08] MEDS ORDERED: Lidocaine PF 2% (20 MG/ML) 5 ML VIAL ONE (07:48)
[2024-07-08] MEDS ORDERED: NS 10 ML IV ONE (07:49)
[2024-07-08] MEDS ORDERED: oxyCODONE/Acetaminophen 5-325 MG TAB PO PRN (08:00)
[2024-07-08] MEDS ORDERED: Hyoscyamine 0.125 MG Sublingual TAB SL PRN (08:00)
[2024-07-08] MEDS ORDERED: ePHEDrine 50 MG/ML VIAL ONE (08:12)
[2024-07-08] MEDS ORDERED: NS 100 ML IV ONE (08:13)
[2024-07-08] MEDS ORDERED: Phenylephrine 10 MG/ML VIAL ONE (08:13)
[2024-07-08] MEDS ORDERED: HYDROmorphone 1 MG/1 ML SYRINGE [PACU/SDC ONLY] IV PRN (08:15)
[2024-07-08] MEDS ORDERED: Ondansetron 4 MG/2 ML VIAL IV PRN (08:15)
--- NOTE | 2024-07-08 09:31 | NUR ---
PT BACK FROM SURGERY. VITALS STABLE
--- NOTE | 2024-07-08 11:07 | NUR ---
spool worker met with pt and her , Shmuel [phone] to discuss discharge planning. Pt reports to live with her in [place]. She sees Dr. Roberts for PCP needs and obtains medications from [facility] with no difficulties. She is independent with ADLS and uses no DME. She reports to have a DPOA-HC at home listing her . reports they are recently established with [facility] and would like to continue. RIGOBERTO faxed updates to [facility]. Discharge Plan: home with
[2024-07-09] VITALS (7 sets, daily range): BP systolic 113–126; BP diastolic 66–72; PULSE 87–104; TEMP 97.4–97.9
[2024-07-09 06:35] LABS: HEMOGLOBIN 10.2 g/dl (12.5-16.0); MEAN CELL VOLUME 94 fl (80.0-100.0); MEAN CORPUSCULAR HEMOGLOBIN 32 pg (27-31); MEAN CORPUSCULAR HGB CONC 34 g/dl (33.0-37.0); MEAN PLATELET VOLUME 9.9 fl (7.4-10.4); PLATELET COUNT 228 K/mm3 (130-400)
--- NOTE | 2024-07-09 06:41 | NUR ---
pt reports no further diarrhea since before surgery, IVF infusing per PIV @ 80cc/hr, taking small amts of oral fluids and solid food. pain controlled with tylenol.
[2024-07-09 06:59] LABS: HEMATOCRIT 30.1 % (37.0-47.0)
[2024-07-09 07:00] LABS: CALCIUM 8.5 mg/dL (8.4-10.2); CREATININE, serum 0.63 mg/dL (0.57-1.11); POTASSIUM 3.3 mEq/L (3.5-4.5)
--- NOTE | 2024-07-09 08:00 | NUR ---
PATIENT IS A&O. VSS. NO C/O PAIN OR N/V. PATIENT REPORTS HER LAST LOOSE STOOL WAS LAST NIGHT AROUND 2100. SHE STATES SHE HAD A SM BM THIS AM BUT IT WAS STARTING TO BECOME SOFT FORM. PATIENT TAKING PROBIOTICS, AM MEDS GIVEN. IV FLUIDS INFUSING VIA PUMP INTO RIGHT AC IV. IF PATIENT TOLERATED GEN DIET FOR BREAKFAST WILL INT HER IV. BREAKFAST TRAY ORDERED. HEAD TO TOE ASSESSMENT COMPLETE. INDEPENDENT IN ROOM. CALL LIGHT IN REACH. NO OTHER NEEDS AT THIS TIME.
[2024-07-09 08:47] LABS: BAND 34 % (0-10); LYMPHOCYTE 15 % (20.0-51.0); METAMYELOCYTE 1 % (0-0); NEUTROPHILS 41 % (42.0-75.2); PLATELET ESTIMATE NORMAL (NORMAL)
[2024-07-09] MEDS ORDERED: PROBIOTIC BLEN1 EACH PO (11:40)
--- NOTE | 2024-07-09 11:40 | NUR ---
HOSPITALIST TEAM ROUNDING, SEE POTASSIUM REPLACEMENT. PATIENT CLEARED TO DISCHARGE HOME LATER TODAY. WAS HERE EARLIER THIS AM BUT IS GONE NOW. SEE PROVIDER NOTES/ORDERS.
[2024-07-09] MEDS ORDERED: *Potassium Replacement Protocol MC SCH (11:45)
[2024-07-09] MEDS ORDERED: Potassium Bicarbonate/Citrate 20 MEQ Effervescent TAB PO SCH (11:45)
--- NOTE | 2024-07-09 13:50 | NUR ---
farmworker turkey farm attended interdisciplinary clinical rounding with Dr. Pal. Emily is medically ready for discharge with [facility]. RIGOBERTO Chavez faxed clinical updates and discharge orders to [facility]. Discharge plan: Home with [facility]
--- NOTE | 2024-07-09 15:15 | NUR ---
PATIENT DISCHARGING HOME WITH . GAVE DISCHARGE INSTRUCTIONS, E-SCRIPT SENT, AND DISCUSSED F/U APTS. ANSWERED QUESTIONS/CONCERNS. DC'D IV AND COVERED SITE WITH [employer]. AFEBRILE. PATIENT IS DRESSED, PACKED AND DISCHARGED TO PRIVATE VEHICLE.
== END 2024-07-09 15:15 | disposition home or self-care (01) ==
LOC: COL.ER 13:26 → SURG 16:43
PROVIDERS: Family Medicine; Nurse Practitioner; ADMIT Internal Medicine
DX: N13.2 Hydronephrosis with renal and ureteral calculous obstruction (principal); R19.7 Diarrhea, unspecified; D64.9 Anemia, unspecified; E87.6 Hypokalemia; I10 Essential (primary) hypertension; E78.5 Hyperlipidemia, unspecified; K21.9 Gastro-esophageal reflux disease without esophagitis; R00.0 Tachycardia, unspecified; F32.A Depression, unspecified; Z79.899 Other long term (current) drug therapy
CPT/HCPCS: C1769; C2617; G0378; J0690; J0696; J1100; J2250; J2371; J2405; J2704; J3010; J7030; J7120

== ENCOUNTER → 2024-07-17 | Outpatient (CLI) | payer MEDICARE ==
[~2024-07-17] MED LIST changes: +PROBIOTIC BLEN1 EACH PO
[2024-07-17 13:45] LABS: CLOSTRIDIUM DIFF A/B POS
== END ==
LOC: COL.LAB 11:16
PROVIDERS: Family Medicine
DX: R19.7 Diarrhea, unspecified (principal)